=== PATIENT | male | born 1990 | race African-American/Black ===

== ENCOUNTER 2017-06-27 11:33 | Emergency (ER) | payer OTHER ==
[2017-06-27 11:39] VITALS: TEMP 97.4; BMI 20.3
[2017-06-27 12:43] LABS: BASOPHIL 0.7 % (0-2.0); EOSINOPHIL 12.4 % (0-4.5); MCH 30.3 pg (25.7-33.7); MCHC 33.7 g/dl (32.0-35.9); MEAN CELL VOLUME 89.9 fl (80-96); MEAN PLT VOLUME 8.1 fl (7.5-11.1); NEUTROPHILS 49.1 % (42.8-82.8); PLATELET COUNT 277 K/MM3 (134-434); RDW 12.7 % (11.9-15.9); WHITE BLOOD COUNT 8.6 K/mm3 (4.0-10.0)
--- NOTE | 2017-06-27 13:15 | PDOC ---
History of Present Illness <Chely Wheeler - Last Filed: 06/27/17 16:10> - History of Present Illness Initial Comments: 06/27/17 13:09 The patient is a 26 year old male, with no significant past medical history, who presents to the emergency department with right lower quadrant pain. The patient states his pain started around the center of his abdomen 3 days ago and gradually migrated towards his right lower quadrant. He reports the pain is constant, 6/10 in severity. He reportedly took ""2 Advil"" yesterday without significant relief of his pain. He denies use of OTC medications today. Denies any dysuria, denies pain in his penis or scrotum, denies any masses. He denies chest pain, shortness of breath, headache and dizziness. He denies fever, chills, nausea, vomit, diarrhea and constipation. He denies dysuria, frequency, urgency and hematuria. Allergies: NKDA Past surgical history: none reported Social history: current smoker (3 cigarettes daily), social EtOH consumption" <Smith Dhaliwal - Last Filed: 06/27/17 16:19> - General Chief Complaint: Pain Stated Complaint: ABD PAIN (PCP SENT) Time Seen by Provider: 06/27/17 12:15 Past History <Chely Wheeler - Last Filed: 06/27/17 16:10> - Past Medical History COPD: No - Suicide/Smoking/Psychosocial Hx Smoking History: Current every day smoker Number of Cigarettes Smoked Daily: 3 Information on smoking cessation initiated: No Hx Alcohol Use: Yes (SOCIAL) Drug/Substance Use Hx: No Substance Use Type: None <Smith Dhaliwal - Last Filed: 06/27/17 16:19> - Past Medical History Allergies/Adverse Reactions: Allergies Allergy/AdvReac Type Severity Reaction Status Date / Time No Known Allergies Allergy Verified 06/27/17 11:39 Review of Systems - Review of Systems Comments:: 06/27/17 13:10 """GENERAL/CONSTITUTIONAL: No fever or chills. No weakness. HEAD, EYES, EARS, NOSE AND THROAT: No change in vision. No ear pain or discharge. No sore throat. CARDIOVASCULAR: No chest pain or shortness of breath. RESPIRATORY: No cough, wheezing, or hemoptysis. GASTROINTESTINAL: (+) Right lower abdominal pain. No nausea, vomiting, diarrhea or constipation. GENITOURINARY: No dysuria, frequency, or change in urination. MUSCULOSKELETAL: No joint or muscle swelling or pain. No neck or back pain. SKIN: No rash NEUROLOGIC: No headache, vertigo, loss of consciousness, or change in strength/ sensation. ENDOCRINE: No increased thirst. No abnormal weight change. HEMATOLOGIC/LYMPHATIC: No anemia, easy bleeding, or history of blood clots. ALLERGIC/IMMUNOLOGIC: No hives or skin allergy. """ <Smith Dhaliwal - Last Filed: 06/27/17 16:19> *Physical Exam - Vital Signs Last Vital Signs Temp Pulse Resp BP Pulse Ox 97.4 F L 60 18 117/72 100 06/27/17 11:36 06/27/17 11:36 06/27/17 11:36 06/27/17 11:36 06/27/17 11:36 <Chely Wheeler - Last Filed: 06/27/17 16:10> - Vital Signs Last Vital Signs Temp Pulse Resp BP Pulse Ox 97.4 F L 60 18 117/72 100 06/27/17 11:36 06/27/17 11:36 06/27/17 11:36 06/27/17 11:36 06/27/17 11:36 - Physical Exam Comments: 06/27/17 13:10 "GENERAL: Awake, alert, and fully oriented, in no acute distress HEAD: No signs of trauma EYES: PERRLA, EOMI, sclera anicteric, conjunctiva clear ENT: Auricles normal inspection, hearing grossly normal, nares patent, oropharynx clear without exudates. Moist mucosa NECK: Nontender, no stepoffs, Normal ROM, supple, no lymphadenopathy, JVD, or masses LUNGS: Breath sounds equal, clear to auscultation bilaterally. No wheezes, and no crackles HEART: Regular rate and rhythm, normal S1 and S2, no murmurs, rubs or gallops ABDOMEN: + RLQ TTP, no rebound/guarding, + Rovsing sign : no scrotal masses or tenderness, no penile lesions or discharge EXTREMITIES: Normal range of motion, no edema. No clubbing or cyanosis. No cords, erythema, or tenderness NEUROLOGICAL: Cranial nerves II through XII intact. 5/5 strength and sensation in all extremities, Normal speech, normal gait SKIN: Warm, Dry, normal turgor, no rashes or lesions noted. " <Smith Dhaliwal - Last Filed: 06/27/17 16:19> ED Treatment Course - LABORATORY CBC & Chemistry Diagram: 06/27/17 12:21 12 12:21 - ADDITIONAL ORDERS Additional order review: Laboratory Results 06/27/17 06/27/17 12 12:22 12:21 12:21 PT with INR 11.40 INR 1.01 PTT (Actin FS) 30.5 Sodium 141 Potassium 4.1 Chloride 103 Carbon Dioxide 29 Anion Gap 9 BUN 11 Creatinine 1.0 Creat Clearance w eGFR > 60 Random Glucose 80 Calcium 9.8 Total Bilirubin 0.7 AST 13 L ALT 25 Alkaline Phosphatase 92 Total Protein 7.8 Albumin 4.8 Blood Type B POSITIVE Antibody Screen Negative 06/27/17 12:21 RBC 5.11 MCV 89.9 MCHC 33.7 RDW 12.7 MPV 8.1 Neutrophils % 49.1 Lymphocytes % 28.1 Monocytes % 9.7 Eosinophils % 12.4 H Basophils % 0.7 <Chely Wheeler - Last Filed: 06/27/17 16:10> - LABORATORY CBC & Chemistry Diagram: 06/27/17 12:21 06/27/17 12:21 - ADDITIONAL ORDERS Additional order review: 06/27/17 12:21 RBC 5.11 MCV 89.9 MCHC 33.7 RDW 12.7 MPV 8.1 Neutrophils % 49.1 Lymphocytes % 28.1 Monocytes % 9.7 Eosinophils % 12.4 H Basophils % 0.7 - RADIOLOGY Radiology Studies Ordered: Category Date Time Status ABDOMEN & PELVIS CT WITH CONTR [CT] Stat CT Scan 06/27/17 12:23 Ordered <MadhuriSmith - Last Filed: 06/27/17 16:19> Medical Decision Making - Medical Decision Making 06/27/17 13:13 26 M with RLQ pain. Concerning for appendicitis. No evidence of testicular torsion, hernias, or other scrotal pathology. - Labs - CTAP 06/27/17 16:17 CTAP negative. Pt reassessed - still reports mild RLQ pain but tolerating PO without N/V. Possible msk etiology. <MadhuriSmith - Last Filed: 06/27/17 16:19> *DC/Admit/Observation/Transfer - Attestations Scribe Attestion: 06/27/17 16:10 Documentation prepared by Chely Wheeler, acting as medical coding specialist for Smith Dhaliwal MD, <Chely Wheeler - Last Filed: 06/27/17 16:10> - Attestations Physician Attestion: 06/27/17 16:19 I, Dr. Smith Dhaliwal MD, attest that this document has been prepared under my direction and personally reviewed by me in its entirety. I further attest, that it accurately reflects all work, treatment, procedures and medical decision -making performed by me. <Smith Dhaliwal - Last Filed: 06/27/17 16:19> Diagnosis at time of Disposition: Abdominal pain - Discharge Dispostion Disposition: HOME - Referrals Referrals: Vijay Izaguirre [Primary Care Provider] - Anshul Price MD [Staff Physician] - - Patient Instructions Printed Discharge Instructions: DI for Abdominal Pain-Adult Additional Instructions: Your CT scan was normal today. However, if you continue to have abdominal pain, you should follow up with a reading specialist. Call the number provided to make an appointment within 1 week. If you experience worsening pain, fevers, vomiting, or any other concerning symptoms, return to the ER immediately. - Post Discharge Activity
[2017-06-27 13:38] LABS: ALBUMIN 4.8 g/dl (3.4-5.0); ANION GAP 9 (8-16); BILIRUBIN,TOTAL 0.7 mg/dL (0.2-1.0); CALCIUM 9.8 mg/dL (8.5-10.1); CO2 29 mmol/L (21-32); GLUCOSE,RANDOM 80 mg/dL (74-106); SGOT/AST 13 U/L (15-37); SGPT/ALT 25 U/L (12-78); TOT PROT 7.8 g/dl (6.4-8.2)
[2017-06-27 13:39] LABS: ALK PHOS 92 U/L (45-117); INR 1.01 (0.82-1.09); PROTHROMBIN TIME (PATIENT) 11.4 SEC (9.98-11.88)
[2017-06-27 13:42] LABS: ACTIVATED PTT 30.5 SECONDS (26.9-34.4)
[2017-06-27 17:16] VITALS: BP 110/70; PULSE 70
== END 2017-06-27 17:17 | disposition home or self-care (01) ==
LOC: JER 11:33
DX: R10.31 Right lower quadrant pain (principal)
CPT/HCPCS: 36415; 74177-TC; 80053; 85025; 85610; 85730; 86850; 86900; 86901; 99282-25

== ENCOUNTER 2023-07-17 14:43 | Emergency (ER) | payer OTHER ==
[2023-07-17 16:14] VITALS: BP 98/55; PULSE 72; RESP 18; TEMP 98.1; BMI 20.3
== END 2023-07-17 16:05 | disposition home or self-care (01) ==
LOC: JER 14:43
DX: R10.31 Right lower quadrant pain (principal)
CPT/HCPCS: 99282-25